=== PATIENT | female | born 1990 | race Caucasian/White ===

== ENCOUNTER 2024-11-23 14:12 | Emergency (ER) | payer OTHER ==
[2024-11-23 14:25] VITALS: RESP 18; TEMP 96.8
--- NOTE | 2024-11-23 14:36 | ERPHSYRPT ---
- History of Present Illness Time Seen by Provider: 11/23/24 14:35 Source: patient Exam Limitations: no limitations Patient Subjective Stated Complaint: pt here for pain to right ear for a week now, states has had some bleeding from ear Triage Nursing Assessment: pt alert, walked in, resp easy, skin w/d/p. Physician History: pt here for pain to right ear for a week now, states has had some bleeding from ear. Timing/Duration: gradual onset Severity: mild ENT Location: ear (R) Prearrival Treatment: no prearrival treatment Associated Symptoms: ear pain (R), No fever, No chills, No change in hearing, No headache, No hearing loss Allergies/Adverse Reactions: Penicillins Allergy (Verified 11/23/24 14:22) Hx Tetanus, Diphtheria Vaccination/Date Given: No Hx Influenza Vaccination/Date Given: No Hx Pneumococcal Vaccination/Date Given: No Immunizations Up to Date: Yes Travel Risk - International Travel Have you traveled outside of the country in past 3 weeks: No - Emerging Infectious Disease Are you exhibiting symptoms associated with any current EIDs: No - Review of Systems Constitutional: No Fever, No Chills Eyes: No Symptoms Ears, Nose, & Throat: Ear Pain, Ear Discharge, No Hearing Changes, No Tinnitus Respiratory: No Cough, No Dyspnea Cardiac: No Chest Pain, No Edema, No Syncope Abdominal/Gastrointestinal: No Abdominal Pain, No Nausea, No Vomiting, No Diarrhea Genitourinary Symptoms: No Dysuria Musculoskeletal: No Back Pain, No Neck Pain Skin: No Rash Neurological: No Dizziness, No Focal Weakness, No Sensory Changes Psychological: No Symptoms Endocrine: No Symptoms All Other Systems: Reviewed and Negative - Past Medical History Pertinent Past Medical History: Yes Psycho-Social History: Anxiety, Bipolar - Past Surgical History Past Surgical History: No - Female History Hx Last Menstrual Period: last week Hx Now: No - Social History Smoking Status: Never smoker Exposure to second hand smoke: No Drug Use: none - Social Determinants of Health Will the patient participate in the screening: Declined to provide - Nursing Vital Signs Nursing Vital Signs: Initial Vital Signs Temperature 96.8 F 11/23/24 14:24 Pulse Rate 89 11/23/24 14:24 Respiratory Rate 18 11/23/24 14:24 Blood Pressure 125/75 11/23/24 14:24 O2 Sat by Pulse Oximetry 100 11/23/24 14:24 Pain Scale Pain Intensity 6 - Physical Exam General Appearance: no apparent distress, alert Eye Exam: bilateral eye: PERRL, EOMI Ear Exam: right ear: tenderness, bilateral ear: TM red Nasal Exam: normal inspection Throat Exam: pharynx normal, moist mucus membranes, No tonsillar exudate Neck Exam: supple Cardiovascular/Respiratory Exam: normal breath sounds, regular rate/rhythm Abdominal Exam: non-tender, soft Neurologic Exam: alert, oriented x 3, sensation nml, No motor deficits Skin Exam: normal color, warm, dry SpO2: 100 - Course Nursing assessment & vital signs reviewed: Yes Ordered Tests: Medication Summary Discontinued Medications Generic Name Dose Route Start Last Admin Trade Name Freq PRN Reason Stop Dose Admin Neomycin/Polymyxin/Hydrocortisone 10 ml 11/23/24 14:33 11/23/24 14:46 Neomy Sulf/Polymyx B Sulf/Hc 10 Ml Otic Solution OT 11/23/24 14:34 10 ml STAT ONE Administration Neomycin/Polymyxin/Hydrocortisone Confirm 11/23/24 14:43 Neomy Sulf/Polymyx B Sulf/Hc 10 Ml Otic Suspension Administered 11/23/24 14:44 Dose 10 ml OT .STK-MED ONE Trimethoprim/Sulfamethoxazole 1 tab 11/23/24 14:34 11/23/24 14:46 Smz/Tmp Ds Tablet 1 Tablet PO 11/23/24 14:35 1 tab STAT STA Administration Trimethoprim/Sulfamethoxazole Confirm 11/23/24 14:44 Smz/Tmp Ds Tablet 1 Tablet Administered 11/23/24 14:45 Dose 1 tab PO .STK-MED ONE - Progress Progress: improved Counseled pt/family regarding: diagnosis, need for follow-up Medical Desision Making - Independent Historian Additional History obtained from: Spouse - Diagnostic Testing Diagnostic test were ordered, analyzed, and reviewed by me: No - Risk of complications Minimal Risk: Minimal risk of morbidity - Departure Departure Disposition: Home Clinical Impression: Otitis media Qualifiers: Otitis media type: suppurative Chronicity: acute Laterality: bilateral Recurrence: non-recurrent Spontaneous tympanic membrane rupture: without spontaneous rupture Qualified Code(s): H66.003 - Acute suppurative otitis media without spontaneous rupture of ear drum, bilateral Condition: Stable Critical Care Time: No Referrals: PRAVIN JONES MD [Primary Care Provider] - Follow up with PCP 5 days Instructions: Ear infections in adults Additional Instructions: Discharge/Care Plan ARIANE SALAS was seen on 11/23/24 in the Emergency Room. The patient was counseled regarding Diagnosis,Lab results, Imaging studies, need for follow up and when to return to the Emergency Room. Prescriptions given: Discharge Note I have spoken with the patient and/or caregivers. I have explained the patient's condition, diagnosis and treatment plan based on the information available to me at this time. I have answered the patient's and/or caregiver's questions and addressed any concerns. The patient and/or caregivers have as good understanding of the patient's diagnosis, condition and treatment plan as can be expected at this point. The vital signs have been stable. The patient's condition is stable and appropriate for discharge from the emergency department. The patient will pursue further outpatient evaluation with the primary care physician or other designated or consulting physician as outlined in the discharge instructions. The patient and/or caregivers are agreeable to this plan of care and follow-up instructions have been explained in detail. The patient and/or caregivers have received these instruction. The patient/and or caregivers are aware that any significant change in condition or worsening of symptoms should prompt an immediate return to this or the closest emergency department or call 911. ARIANE SALAS was seen on 11/23/24 n the Emergency Room. At that time you were treated for an emergent condition, during your visit Laboratory, Radiology and/or other procedures may have been ordered. It is very important that you follow-up with your Primary Care Physician PRAVIN JONES within the next 24-48 hours to review your Emergency Room visit and the final results of testing that was ordered. Some test results such as Urine Cultures, Blood Cultures, and other cultures if ordered will not be finalized for 24-48 hours. If you do not have a Primary Care Provider please call the medical records department at [phone] ext [phone] to obtain a copy of your results or you may sign into our patient portal to obtain these results by visiting us @ [email or web address] and completing the following steps: 1. Click on the Patient Portal link 2. Click the Patient Self Enrollment Link to complete the enrollment form and entering your 3. Once the enrollment form is completed you will receive an email with a temporary ID and password at the email address you provided. 4. Next choose a user name and password. Your user name must be at least 4 characters long and your password must be at least 4 characters long. 5. Choose a security question from the list and provide your answer to the question. If you already have signed into the Health Portal you may access your Health Care Information 17/04 by the following steps: 1. Login to our website @ [email or web address] 2. Enter your original user name and password. FAQS The [facility] Health Portal is an online tool that contains your Lab Results, Radiology Reports, Visit History, Discharge Instructions and Health Summary Lab and Radiology Results will not be available for 72 hours on the portal. The Portal is a secure site, passwords are encryted and URLs are re-written so they cannot be copied and pasted. You and authorized family members are the only ones who can access your Portal. Also there is a timeout feature that protects your information if you leave the Portal page open. If you have technical difficulty please use the Contact Us link on the page this will allow you to submit any questions you have regarding the Portal or you may contact the Medical Record Department at [phone] ext [phone]. Prescriptions: Smz/Tmp Ds Tablet [Bactrim Ds Tablet] 1 udtab PO BID #20 tablet
[2024-11-23] MEDS ORDERED: CORTISPORIN EAR DROPS 10 ML SUSPENSION OT ONE (14:43)
[2024-11-23] MEDS ORDERED: BACTRIM DS TABLET PO ONE (14:44)
[2024-11-23] MEDS: CORTISPORIN EAR DROPS Solution 1OML OT ONE (14:46)
[2024-11-23] MEDS: BACTRIM DS TABLET PO STA (14:46)
[2024-11-23 15:23] VITALS: BP 120/70; PULSE 70; O2SAT 97
== END 2024-11-23 15:10 | disposition home or self-care (01) ==
LOC: ED 14:12
DX: H66.003 Acute suppurative otitis media without spontaneous rupture of ear drum, bilateral (principal); H92.01 Otalgia, right ear; Z79.899 Other long term (current) drug therapy
CPT/HCPCS: 99281; 99283; A9270-GY